=== PATIENT | male | born 1965 | race Caucasian/White ===

== ENCOUNTER → 2017-09-22 | Outpatient (CLI) | payer OTHER | END | disposition home or self-care (01) | LOC: LAB 10:50 | DX: Z12.11 Encounter for screening for malignant neoplasm of colon (principal); K92.1 Melena ==

== ENCOUNTER 2017-09-29 05:31 | Day surgery (SDC) | payer OTHER | END 2017-09-29 09:40 | disposition home or self-care (01) | LOC: AMB-ENDOS 05:31 | DX: K57.30 Diverticulosis of large intestine without perforation or abscess without bleeding (principal); K64.2 Third degree hemorrhoids; Z12.11 Encounter for screening for malignant neoplasm of colon ==

== ENCOUNTER 2018-06-03 08:02 | Emergency (ER) | payer OTHER ==
[~2018-06-03] VITALS: Ht 162.6 cm; Wt 72.6 kg
[2018-06-03] MEDS ORDERED: [UNRECOGNIZED DRUG - OTHER] (08:35)
== END 2018-06-03 12:19 | disposition home or self-care (01) ==
LOC: ER 08:02
DX: J32.8 Other chronic sinusitis (principal)

== ENCOUNTER 2019-05-18 16:32 | Emergency (ER) | payer OTHER ==
[~2019-05-18] VITALS: Ht 162.6 cm; Wt 71.7 kg
[~2019-05-18 16:32] MED LIST: [UNRECOGNIZED DRUG - OTHER]
[2019-05-18] MEDS ORDERED: ACID CONTROL150 MG (16:48)
== END 2019-05-18 20:01 | disposition home or self-care (01) ==
LOC: ER 16:32
DX: M54.12 Radiculopathy, cervical region (principal)

== ENCOUNTER 2020-10-12 13:21 | Outpatient (CLI) | payer OTHER ==
[~2020-10-12 13:21] MED LIST changes: +ACID CONTROL150 MG
== END 2020-10-12 13:27 | disposition home or self-care (01) ==
LOC: RAD 13:21
DX: I25.10 Atherosclerotic heart disease of native coronary artery without angina pectoris (principal); R00.1 Bradycardia, unspecified

== ENCOUNTER 2021-02-05 12:43 | Day surgery (SDC) | payer OTHER | END 2021-02-05 16:40 | disposition home or self-care (01) | LOC: AMB-ENDOS 12:43 | PROVIDERS: ATTEND Colon & Rectal Surgery | DX: K62.89 Other specified diseases of anus and rectum (principal); K64.2 Third degree hemorrhoids; Z20.822 Contact with and (suspected) exposure to COVID-19 ==

== ENCOUNTER 2021-02-10 18:43 | Emergency (ER) | payer OTHER ==
[~2021-02-10] VITALS: Ht 162.6 cm; Wt 63.5 kg
[2021-02-10] MEDS ORDERED: VISTARIL25 MG PO (19:26)
== END 2021-02-10 20:31 | disposition home or self-care (01) ==
LOC: ER 18:43
DX: F41.1 Generalized anxiety disorder (principal)

== ENCOUNTER 2021-07-07 01:59 | Emergency (ER) | payer OTHER ==
[~2021-07-07] VITALS: Ht 162.6 cm; Wt 69.9 kg
[~2021-07-07 01:59] MED LIST changes: +VISTARIL25 MG PO
[2021-07-07] MEDS ORDERED: EYE ALLERGY REL15 M1 OP (03:11)
== END 2021-07-07 03:19 | disposition home or self-care (01) ==
LOC: ER 01:59
DX: H10.211 Acute toxic conjunctivitis, right eye (principal); T49 Poisoning by, adverse effect of and underdosing of topical agents primarily affecting skin and mucous membrane and by ophthalmological, otorhinorlaryngological and dental drugs; Y92.89 Other specified places as the place of occurrence of the external cause

== ENCOUNTER 2021-11-22 11:42 | Outpatient (CLI) | payer OTHER ==
[~2021-11-22 11:42] MED LIST changes: +EYE ALLERGY REL15 M1 OP
== END 2021-11-22 11:47 | disposition home or self-care (01) ==
LOC: RAD 11:42
PROVIDERS: ATTEND General Practice
DX: M25.561 Pain in right knee (principal)

== ENCOUNTER 2022-01-06 17:13 | Emergency (ER) | payer OTHER ==
[~2022-01-06] VITALS: Ht 162.6 cm; Wt 62.6 kg
== END 2022-01-06 18:32 | disposition home or self-care (01) ==
LOC: ER 17:13
DX: L40.50 Arthropathic psoriasis, unspecified (principal)

== ENCOUNTER 2022-01-17 10:53 | Outpatient (CLI) | payer OTHER | END 2022-01-17 11:03 | disposition home or self-care (01) | LOC: SONOGRAMA 10:53 | DX: L40.50 Arthropathic psoriasis, unspecified (principal); K74.60 Unspecified cirrhosis of liver ==

== ENCOUNTER 2022-01-30 12:37 | Emergency (ER) | payer OTHER ==
[~2022-01-30] VITALS: Ht 162.6 cm; Wt 63.0 kg
[2022-01-30] MEDS ORDERED: VISTARIL50 MG PO (13:33)
== END 2022-01-30 13:47 | disposition home or self-care (01) ==
LOC: ER 12:37
DX: F41.9 Anxiety disorder, unspecified (principal)

== ENCOUNTER 2022-04-01 11:02 | Outpatient (CLI) | payer OTHER ==
[~2022-04-01 11:02] MED LIST changes: +VISTARIL50 MG PO
== END 2022-04-01 11:12 | disposition home or self-care (01) ==
LOC: RAD 11:02
PROVIDERS: ATTEND General Practice
DX: J20.9 Acute bronchitis, unspecified (principal)

== ENCOUNTER 2022-06-13 20:16 | Emergency (ER) | payer OTHER ==
[~2022-06-13] VITALS: Ht 162.6 cm; Wt 63.5 kg
[2022-06-14] MEDS ORDERED: CELEBREX200MG PO (03:33)
[2022-06-14] MEDS ORDERED: METAXALONE800 MG PO (03:33)
== END 2022-06-14 04:48 | disposition home or self-care (01) ==
LOC: ER 20:16
DX: S39.012A Strain of muscle, fascia and tendon of lower back, initial encounter (principal); X58.XXXA Exposure to other specified factors, initial encounter; Y93.9 Activity, unspecified; Y92.9 Unspecified place or not applicable; Y99.9 Unspecified external cause status

== ENCOUNTER 2022-12-15 10:25 | Outpatient (CLI) | payer OTHER ==
[~2022-12-15 10:25] MED LIST changes: +CELEBREX200MG PO; +METAXALONE800 MG PO
== END 2022-12-15 10:31 | disposition home or self-care (01) ==
LOC: RAD 10:25
DX: M19.90 Unspecified osteoarthritis, unspecified site (principal)

== ENCOUNTER → 2023-02-01 | Emergency (ER) | payer OTHER ==
[~2023-02-01] VITALS: Ht 162.6 cm; Wt 59.0 kg
[~2023-02-01] MED LIST changes: +CLOBETASOL PROP15 GM TP
== END | disposition home or self-care (01) ==
LOC: ER 19:58
PROVIDERS: General Practice
DX: R50.9 Fever, unspecified (principal); L40.59 Other psoriatic arthropathy

== ENCOUNTER 2023-03-01 09:31 | Outpatient (CLI) | payer OTHER | END 2023-03-01 09:37 | disposition home or self-care (01) | LOC: MRI 09:31 | PROVIDERS: ATTEND Physical Medicine & Rehabilitation | DX: M54.59 Other low back pain (principal); M19.90 Unspecified osteoarthritis, unspecified site | CPT/HCPCS: 72148 ==

== ENCOUNTER 2023-03-16 10:09 | Outpatient (CLI) | payer OTHER | END 2023-03-16 10:18 | disposition home or self-care (01) | LOC: NUCLEAR 10:09 | DX: G47.62 Sleep related leg cramps (principal) ==

== ENCOUNTER 2023-06-27 12:49 | Outpatient (CLI) | payer OTHER | END 2023-06-27 12:52 | disposition home or self-care (01) | LOC: RAD 12:49 | DX: M17.0 Bilateral primary osteoarthritis of knee (principal) ==

== ENCOUNTER 2024-04-10 09:07 | Outpatient (CLI) | payer OTHER | END 2024-04-10 09:13 | disposition home or self-care (01) | LOC: RAD 09:07 | PROVIDERS: ATTEND Physical Medicine & Rehabilitation | DX: M25.551 Pain in right hip (principal) ==

== ENCOUNTER 2024-10-18 07:48 | Outpatient (CLI) | payer OTHER | END 2024-10-18 07:50 | disposition home or self-care (01) | LOC: SONOGRAMA 07:48 | PROVIDERS: ATTEND General Practice | DX: R31.9 Hematuria, unspecified (principal) ==